=== PATIENT | male | born 1945 | race Caucasian/White ===

== ENCOUNTER 2020-05-29 07:15 | Day surgery (SDC) | payer MEDICARE, BC ==
[~2020-05-29 07:15] MED LIST: Lactated Ringers 1,000 ML IV SCH
[2020-05-29] MEDS ORDERED: Propofol 200 MG/20 ML SDV ONE (07:24)
--- NOTE | 2020-05-29 07:54 | PCM.PREANE ---
Preanesthetic Assessment - Anesthesia/Transfusion/Family Hx Anesthesia History: Prior Anesthesia Without Reaction Family History of Anesthesia Reaction: No Transfusion History: No Prior Transfusion(s) Intubation History: Unknown - Review of Systems General: No Symptoms Pulmonary: No Symptoms Cardiovascular: No Symptoms Gastrointestinal: No Symptoms, Other (colonoscopy 10 years ago was normal) Neurological: No Symptoms Other: Reports: None - Physical Assessment Height: 5 ft 10 in Weight: 107.955 kg ASA Class: 3 Mental Status: Alert & Oriented x3 Airway Class: Mallampati = 3 Dentition: Reports: Normal Dentition Thyro-Mental Finger Breadths: 3 Mouth Opening Finger Breadths: 3 ROM/Head Extension: Limited/Partial Lungs: Clear to Auscultation, Normal Respiratory Effort Cardiovascular: Regular Rate, Regular Rhythm - Allergies Allergies/Adverse Reactions: Allergies Allergy/AdvReac Type Severity Reaction Status Date / Time No Known Allergies Allergy Verified 05/26/20 08:38 - Blood Blood Available: No - Anesthesia Plan Pre-Op Medication Ordered: None - Acknowledgements Anesthesia Type Planned: MAC Pt an Appropriate Candidate for the Planned Anesthesia: Yes Alternatives and Risks of Anesthesia Discussed w Pt/Guardian: Yes Pt/Guardian Understands and Agrees with Anesthesia Plan: Yes PreAnesthesia Questionnaire HEENT History: Reports: Glaucoma Other HEENT History: wears glasses Cardiovascular History: Reports: Afib, Hypertension, ND, Stents (x3 9-10 years ago- no problems since) Other Cardiovascular History: A-fib in the past, had been on anticoagulants in the past, no problems for approx 4 years Respiratory History: Reports: Sleep Apnea, Other (See Below) Other Respiratory History: uses CPAP Gastrointestinal History: Reports: GERD Genitourinary History: Reports: Renal Calculus Musculoskeletal History: Reports: Fracture, Gout, Osteoarthritis Other Musculoskeletal History: fx arm as a child Neurological History: Reports: None Psychiatric History: Reports: None Endocrine/Metabolic History: Reports: Obesity/BMI 30+ (BMIm 34.1) Hematologic History: Reports: Other (See Below) (h/o autoimmune thrombocytopenia) Immunologic History: Reports: None Oncologic (Cancer) History: Reports: None Dermatologic History: Reports: None - Past Surgical History Head Surgeries/Procedures: Reports: None HEENT Surgical History: Reports: None Cardiovascular Surgical History: Reports: Coronary Artery Stent Other Cardiovascular Surgeries/Procedures: coronary stent placement in 2008 Respiratory Surgical History: Reports: None GI Surgical History: Reports: Appendectomy, Colonoscopy (10 years ago normal), EGD (esophageal dilatation), Hernia, Inguinal, Other (See Below) Other GI Surgeries/Procedures: esophageal dilation Male Surgical History: Reports: None Endocrine Surgical History: Reports: None Neurological Surgical History: Reports: None Musculoskeletal Surgical History: Reports: Other (See Below) Other Musculoskeletal Surgeries/Procedures:: surgery on left foot and rt ankle due to arthritis Oncologic Surgical History: Reports: None Dermatological Surgical History: Reports: None - SUBSTANCE USE Smoking Status *Q: Never Smoker Recreational Drug Use History: No - HOME MEDS Home Medications: Home Meds Metoprolol Succinate [Toprol XL] 50 mg PO DAILY 03/19/16 [History] Nitroglycerin [Nitrostat] 0.4 mg SL ASDIRECTED PRN 03/19/16 [History] atorvaSTATin Calcium [Atorvastatin Calcium] 20 mg PO DAILY 03/19/16 [History] Allopurinol [Zyloprim] 300 mg PO DAILY 05/26/20 [History] Aspirin [Adult Aspirin Regimen] 2 tab PO DAILY 05/26/20 [History] Latanoprost/Pf [Latanoprost 0.005% Eye Drop] 1 drop EYEBOTH BEDTIME 05/26/20 [History] Naproxen Sodium [Aleve] 1 tab PO DAILY 05/26/20 [History] Pantoprazole Sodium [Protonix] 40 mg PO DAILY 05/26/20 [History] fluorouraciL [Fluorouracil] 1 applic TOP BID PRN 05/26/20 [History] lisinopriL [Lisinopril] 20 mg PO DAILY 05/26/20 [History] - CURRENT (IN HOUSE) MEDS Current Meds: Current Medications Lactated Ringer's (Ringers, Lactated) 1,000 mls @ 125 mls/hr IV ASDIRECTED DEONNA Discontinued Medications Propofol (Diprivan 20 Ml) Confirm Administered Dose 400 mg .ROUTE .STK-MED ONE Stop: 05/29/20 07:25
--- NOTE | 2020-05-29 09:22 | PCM.OPNOTE ---
- General Post-Op/Procedure Note Date of Surgery/Procedure: 05/29/20 Operative Procedure(s): colonoscopy Findings: diverticulosis dictation #[id number] Pre Op Diagnosis: Screening Post-Op Diagnosis: diverticulosis Anesthesia Technique: Moderate Sedation Primary Surgeon: Huey Schuster Pathology: none Complications: None Condition: Good
--- NOTE | 2020-05-29 09:24 | PCM.POSTAN ---
POST ANESTHESIA ASSESSMENT - MENTAL STATUS Mental Status: Alert, Oriented - VITAL SIGNS Vital Signs: Last Vital Signs Temp 36.6 C 05/29/20 07:50 Pulse 75 05/29/20 09:21 Resp 18 05/29/20 09:21 BP 108/66 05/29/20 09:21 Pulse Ox 94 L 05/29/20 09:21 - RESPIRATORY Respiratory Status: Respiratory Rate WNL, Airway Patent, O2 Saturation Stable - CARDIOVASCULAR CV Status: Pulse Rate WNL, Blood Pressure Stable - GASTROINTESTINAL GI Status: No Symptoms - PAIN Pain Score: 0 - POST OP HYDRATION Hydration Status: Adequate & Stable - OBSERVATIONS Free Text/Narrative:: No anesthesia problems
--- NOTE | 2020-05-29 09:45 | PCM48HPAN ---
Post Anesthesia Note - EVALUATION WITHIN 48HRS OF ANESTHETIC Vital Signs in Normal Range: Yes Patient Participated in Evaluation: Yes Respiratory Function Stable: Yes Airway Patent: Yes Cardiovascular Function Stable: Yes Hydration Status Stable: Yes Pain Control Satisfactory: Yes Nausea and Vomiting Control Satisfactory: Yes Mental Status Recovered: Yes Vital Signs: Last Vital Signs Temp 36.6 C 05/29/20 07:50 Pulse 75 05/29/20 09:21 Resp 18 05/29/20 09:21 BP 108/66 05/29/20 09:21 Pulse Ox 94 L 05/29/20 09:21 - COMMENTS/OBSERVATIONS Free Text/Narrative:: No anesthesia problems
[2020-05-29 11:34] VITALS: BP 128/73; PULSE 71
--- NOTE | 2020-05-29 12:44 | OR ---
SURGEON: MISSY MOSS MD DATE OF PROCEDURE: 05/29/2020 PREOPERATIVE DIAGNOSIS: Screening colonoscopy. POSTOPERATIVE DIAGNOSIS: Diverticulosis. PRIMARY SURGEON: Missy Moss MD ANESTHESIA: General with Anesthesia. EXTENT OF EXAM: To the cecum. WITHDRAWAL TIME: 8.5 minutes. BOWEL PREP: Excellent. LIMITATIONS: None. REASON FOR PROCEDURE: The patient is a pleasant 75-year-old gentleman whose last colonoscopy was 10 years ago. He reports it was normal. Denies any blood in stool. Denies any family history of colon cancer. PROCEDURE IN DETAIL: Physical examination was performed. The major risks and benefits associated with the procedure were explained to the patient in detail. The patient verbalized understanding of the same. The patient was then connected to appropriate monitoring devices and IV started. EKG, pulse, pulse oximetry, blood pressure, and capnography were monitored throughout the procedure. Continuous oxygen and sedation were provided by the anesthesiologist. The patient was placed in left lateral decubitus position. Sedation was began. After adequate sedation was achieved, digital rectal exam was performed. No rectal masses or polyps were felt. Now, a well-lubricated Olympus colonoscope was entered in the rectum and advanced under direct visualization to the level of the cecum. Cecum was identified by both visual and anatomic landmarks. Photograph was taken of the cecal cap and the terminal ileum was also intubated. Scope was then slowly withdrawn in somewhat circular fashion looking at the color, texture, anatomy, and integrity of the mucosa from the cecum to the anal canal. The patient had a very good bowel prep with just very minimal residual prep that was suctioned and irrigated out with excellent look at the mucosa. The patient did have some diverticulosis noted in the sigmoid colon. Scope was retroflexed in the rectum. Scope was then completely removed, and the procedure was terminated. ENDOSCOPIC DIAGNOSIS: Diverticulosis. RECOMMENDATIONS: Followup colonoscopy in 10 years, sooner if he develops signs or symptoms, such as change in bowel habits or blood in stool. The patient may need to discuss with his primary care provider in 10 years if he needs another screening colonoscopy because he will be 85, which is beyond current recommendation for screening colonoscopies. PELON / MAYI /[id number] FERNANDO
== END 2020-05-29 09:45 | disposition home or self-care (01) ==
LOC: MW.SDS 07:15
PROVIDERS: ATTEND Surgery
DX: Z12.11 Encounter for screening for malignant neoplasm of colon (principal); K57.30 Diverticulosis of large intestine without perforation or abscess without bleeding; I25.10 Atherosclerotic heart disease of native coronary artery without angina pectoris; E78.5 Hyperlipidemia, unspecified; I10 Essential (primary) hypertension; G47.33 Obstructive sleep apnea (adult) (pediatric); E66.3 Overweight; I25.2 Old myocardial infarction; K21.9 Gastro-esophageal reflux disease without esophagitis; Z95.5 Presence of coronary angioplasty implant and graft; Z79.899 Other long term (current) drug therapy; Z79.890 Hormone replacement therapy; Z68.34 Body mass index [BMI] 34.0-34.9, adult; Z79.82 Long term (current) use of aspirin
CPT/HCPCS: G0121; J2704; J7120; 00812

== ENCOUNTER 2024-09-08 10:10 | Emergency (ER) | payer MEDICARE ==
[2024-09-08] MEDS ORDERED: Sodium Chloride 0.9% 10 ML Syringe FLUSH PRN (10:14)
[2024-09-08] MEDS ORDERED: Sodium Chloride 0.9% 2.5 ML Syringe FLUSH PRN (10:14)
[2024-09-08 10:23] VITALS: BP 116/76; PULSE 105
[2024-09-08 10:32] LABS: HEMATOCRIT 43.4 % (42.0-52.0); HEMOGLOBIN 15.1 g/dL (14.0-18.0); MEAN CORPUSCULAR HEMOGLOBIN 31.4 pg (28.0-32.0); MEAN CORPUSCULAR HGB CONC 34.8 g/dL (32.0-36.0); MEAN CORPUSCULAR VOLUME 90.2 fL (83.0-99.0); MEAN PLATELET VOLUME 8.5 fL (9.4-12.4); PLATELET COUNT,PLT 204 K/uL (150-400); RED BLOOD CELL COUNT 4.81 M/uL (4.52-5.90); WHITE BLOOD CELL COUNT,WBC 19.27 K/uL (3.9-11.3)
[2024-09-08] MEDS: Sodium Chloride 0.9% 1,000 ML IV ONE (10:49)
[2024-09-08 10:51] LABS: LYMPHOCYTES ABSOLUTE MAN 0.77 K/uL (1.00-4.80); LYMPHOCYTES PERCENT MAN 4 % (24-44); SEG NEUTROPHILS ABSOLUTE MAN 16.96 K/uL (1.80-7.70); SEG NEUTROPHILS PERCENT MAN 88 % (41-71)
[2024-09-08 10:52] LABS: BASOPHILS ABSOLUTE MAN 0.19 K/uL (0.00-0.20); BASOPHILS PERCENT MAN 1 % (0-1); MONOCYTES ABSOLUTE MAN 1.35 K/uL (0.00-0.80); MONOCYTES PERCENT MAN 7 % (0-8)
[2024-09-08 10:55] LABS: A/G RATIO 0.7 (0.9-1.6); BILIRUBIN TOTAL 0.8 mg/dL (0.2-1.0); CALCIUM 8.5 mg/dL (8.5-10.1); CARBON DIOXIDE,CO2 22.8 mmol/L (21.0-32.0); CREATININE 1.4 mg/dL (0.8-1.3); EST CRCL DRUG DOSING (CG) 45.63 mL/min; POTASSIUM,K 3.9 mmol/L (3.5-5.1); PROTEIN TOTAL,TP 7.4 g/dL (6.4-8.2)
[2024-09-08] MEDS: Iopamidol 755 MG/ML 500 ML Multipack Bottle IVPUSH STA (11:35)
[2024-09-08 11:46] LABS: APPEARANCE,URINE CLEAR; BILIRUBIN,URINE SMALL (NEGATIVE); COLOR,URINE YELLOW; GLUCOSE,URINE NEGATIVE (NEGATIVE); KETONES,URINE NEGATIVE (NEGATIVE); LEUKOCYTE ESTERASE,URINE NEGATIVE (NEGATIVE); NITRITE,URINE NEGATIVE (NEGATIVE); OCCULT BLOOD,URINE TRACE-INTACT (NEGATIVE); PROTEIN,URINE 30 mg/dL (NEGATIVE); UROBILINOGEN,URINE 0.2 EU/dL (<2.0)
[2024-09-08 11:53] LABS: BACTERIA,URINE FEW (NEGATIVE); EPITHELIAL CELLS,URINE RARE (NONE-FEW); RBC,URINE 0-2 (0-2/HPF); WBC,URINE 0-2 (0-5/HPF)
[2024-09-08] MEDS: Piperacillin/Tazobactam 4.5 GM in Sodium Chloride 0.9% 100 ML IV ONE (12:50)
== END 2024-09-08 15:31 ==
LOC: MW.ED 10:10
DX: K57.20 Diverticulitis of large intestine with perforation and abscess without bleeding (principal); I10 Essential (primary) hypertension; I25.2 Old myocardial infarction; K21.9 Gastro-esophageal reflux disease without esophagitis; E66.9 Obesity, unspecified; Z95.5 Presence of coronary angioplasty implant and graft; Z79.899 Other long term (current) drug therapy; Z75.8 Other problems related to medical facilities and other health care; Z68.31 Body mass index [BMI] 31.0-31.9, adult
CPT/HCPCS: 36415; 74177; 80053; 81001; 83690; 85025; 96361; 96365; 99285; J2543; J3490; J7030; Q9967; 99284